=== PATIENT | female | born 1965 | race Hispanic/Latino ===

== ENCOUNTER → 2019-01-02 | Outpatient (CLI) | payer BC | END | disposition home or self-care (01) | LOC: SHCH 09:04 | PROVIDERS: ATTEND Internal Medicine Cardiovascular Disease | DX: I51.7 Cardiomegaly (principal) | CPT/HCPCS: 93306 ==

== ENCOUNTER 2022-11-11 11:05 | Emergency (ER) | payer BC ==
[~2022-11-11] VITALS: Ht 304.8 cm; Wt 63.5 kg
[2022-11-11 13:42] LABS: BASOPHILS % (AUTO) 0.2 % (0.0-5.0); EOSINOPHILS % (AUTO) 0.9 % (0.0-8.0); HEMATOCRIT 38.3 % (36-48); LYMPHOCYTES % (AUTO) 17.5 % (21.0-51.0); MEAN CORPUSCULAR HGB CONC 33.9 g/dL (32.0-36.0); MEAN CORPUSCULAR VOLUME 85.5 fL (79-99); MONOCYTES % (AUTO) 6.5 % (3.0-13.0); NEUTROPHILS % (AUTO) 74.5 % (40.0-77.0); PLATELET COUNT (AUTO) 226 K/uL (130-400); RED BLOOD CELL COUNT(AUTO) 4.48 MIL/uL (4.00-5.50); RED CELL DISTRIBUTION WIDTH 13.5 % (11.0-15.5); WHITE BLOOD COUNT (AUTO) 9.1 K/uL (4.8-10.8)
[2022-11-11 13:46] LABS: APPEARANCE,URINE CLEAR (CLEAR); BILIRUBIN,URINE NEGATIVE (NEGATIVE); COLOR,URINE YELLOW (YELLOW); GLUCOSE, URINE (UA) NEGATIVE (NEGATIVE); KETONES,URINE NEGATIVE (NEGATIVE); LEUKOCYTE ESTERASE ,URINE NEGATIVE Leu/uL (NEGATIVE); NITRATE,URINE NEGATIVE (NEGATIVE); OCCULT BLOOD,URINE NEGATIVE (NEGATIVE); PH,URINE 6.5 (5.0-8.0); PROTEIN,URINE 10 mg/dL (NEGATIVE); UROBILINOGEN,URINE 0.2 mg/dL (0.2-1.0)
[2022-11-11 13:50] LABS: CREATININE 0.6 mg/dL (0.5-1.5); POTASSIUM 3.7 mmol/L (3.5-5.1)
[2022-11-11 13:57] LABS: ALBUMIN 3.9 g/dL (3.5-5.0); TOTAL PROTEIN, SERUM 7.8 g/dL (6.0-8.3)
[2022-11-11] MEDS ORDERED: DICYCLOMINE HCL 10 MG/5 ML ML PO SCH (16:00)
[2022-11-11] MEDS ORDERED: MAG/ALUM/SIMETH 30 ML UDCUP PO ONE (16:00)
[2022-11-11] MEDS ORDERED: LIDOCAINE HCL 2% VISCOUS 15 ML UDCUP PO ONE (16:00)
[2022-11-11] MEDS ORDERED: OMEP20TA2 PO (16:35)
[2022-11-11 16:46] VITALS: BP 123/62
== END 2022-11-11 16:54 | disposition home or self-care (01) ==
LOC: EDH 11:05
DX: R10.33 Periumbilical pain (principal); Z90.710 Acquired absence of both cervix and uterus; Z79.899 Other long term (current) drug therapy; Z88.2 Allergy status to sulfonamides; Z88.8 Allergy status to other drugs, medicaments and biological substances
CPT/HCPCS: 36415; 74176; 80053; 81003; 84484; 85025; 93005

== ENCOUNTER → 2025-06-06 | Outpatient (CLI) | payer BC ==
[~2025-06-06] MED LIST: OMEP20TA2 PO
== END | disposition home or self-care (01) ==
LOC: RAH 15:14
PROVIDERS: ATTEND Internal Medicine
DX: N63.13 Unspecified lump in the right breast, lower outer quadrant (principal); N64.4 Mastodynia

== ENCOUNTER → 2025-08-01 | Outpatient (CLI) | payer BC ==
--- NOTE | 2025-08-01 11:17 | EKG ---
[facility] Test Date: 2025-08-01 Test Time: 11:13:48 Pat Name: LALITO JONES Department: [facility] Room: Gender: F [employer] Worker: [id number] : 1965 Requested By: GOLDIE RODRIGUEZ Order Number: [id number] Reading MD: Zehra Durand Measurements Intervals [place] Rate: 64 P: 68 LA: 258 QRS: 17 QRSD: 80 T: 4 QT: 410 QTc: 422 Interpretive Statements Atrial-paced rhythm with prolonged AV conduction Compared to ECG 11/11/2022 14:37:37 Sinus rhythm no longer present Electronically Signed On 08-01-2025 12:41:13 SPEECH CORRECTION CONSULTANT by Zehra Durand Please click the below link to view image of tracing.
--- NOTE | 2025-08-02 00:36 | HMCIMG ---
EXAM: CR CHEST, 2 VIEWS CLINICAL HISTORY: Preoperative COMPARISON: None provided TECHNIQUE: Frontal and lateral radiographs of the chest. FINDINGS: Lines/Devices: A left implantable intra-venous port is seen with its tip at the sinoatrial junction. A cardiac pacemaker is seen overlying the right aspect of the chest with intact leads. Lungs: Radiographically clear. No consolidation or ground-glass opacities are observed. There is no pleural effusion. There is no pneumothorax. Mediastinum and cardiovascular structures: The cardiac silhouette is not enlarged. The central airway and mediastinal contours are unremarkable. Bones and soft tissues: Unremarkable. IMPRESSION: 1. No evidence of acute cardiopulmonary abnormalities. 2. A left implantable venous port with its tip at the sinoatrial junction. 3.A cardiac pacemaker overlying the right aspect of the chest with intact leads. /[place]
== END | disposition home or self-care (01) ==
LOC: RAH 10:17
PROVIDERS: ATTEND Internal Medicine
DX: Z01.818 Encounter for other preprocedural examination (principal); I10 Essential (primary) hypertension; R00.1 Bradycardia, unspecified; C50.912 Malignant neoplasm of unspecified site of left female breast; Z95.0 Presence of cardiac pacemaker
CPT/HCPCS: 71046; 93005